=== PATIENT | female | born 1995 ===

== ENCOUNTER → 2019-06-05 23:40 | Observation (INO) ==
[2019-06-05 22:20] LABS: Amphetamine Screen,Urine Negative ng/mL (Cutoff=1000); Barbiturate Screen,Urine Negative ng/mL (Cutoff=200); Benzodiazepines Screen,Urine Negative ng/mL (Cutoff=200); Cannabinoid Screen,Urine Negative ng/mL (Cutoff = 50); Cocaine Screen,Urine Negative ng/mL (Cutoff= 300); Opiate Screen,Urine Negative ng/mL (Cutoff=300); Phencyclidine Screen,Urine Negative ng/mL (Cutoff=25)
[2019-06-05 22:34] LABS: Bilirubin,Urine Small (Negative); Blood,Urine Negative (Negative); Clarity,Urine Clear (Clear); Color,Urine Dark Yellow (Yellow); Glucose,Urine (UA) 250 mg/dL (Normal); Ketones,Urine Negative (Negative); Leukocyte Esterase,Urine Negative (Negative); Nitrite,Urine Negative (Negative); Protein,Urine Trace mg/dL (Neg-Trace); Specific Gravity,Urine > 1.030 (1.010-1.025); Urobilinogen,Urine Normal (Normal)
--- NOTE | 2019-06-05 23:12 | OB/GYN Progress Note ---
Date of Encounter: 06/05/19 Time of Encounter: 23:01 - Assessment and Plan (1) 33 weeks gestation of Current Visit: Yes Status: Acute Urine - dehydration; encouraged PO rehydration Suprapubic pressure - encouraged maternity support belt, massage, and urgent care physician assistant Discharge home with PTL precautions Follow up in office with routine care and PRN POC per consult with Dr Davison (2) Abdominal pain affecting Current Visit: Yes Status: Acute (3) NST (non-stress test) reactive Current Visit: Yes Status: Acute Subjective - Subjective Principal diagnosis: lower abdominal cramping Interval history: Ms Giordano is a 23 year old at 33 weeks and 1 day that presents to triage with c/o lower abdominal pain and pressure. This pain was so severe earlier today that she had to lay down in her car before she could drive. She also states she had an episode of difficulty breathing after the pain in her episode subsided. She states she has a history of anxiety with related chest pain, but has never been officially diagnosed with anxiety. She states positive movement. She denies headaches, vision changes, epigastric pain, leaking of fluid, and vaginal bleeding/discharge. She is seen by Dr Lara for her care. She has a medical history significant for Crohns for which she is no longer getting Remicade infusions and one previous LTCS for which she wishes to attempt a TOLAC. She is seen by Dr Lara for her care. Antepartum ROS: movement normal Objective - Vital Signs Vital Signs: Intake and Output 06/05/19 06/05/19 06/05/19 07:59 15:59 23:59 Other: Weight 69.49 kg Patient Weight 06/05/19 23:59 Weight 69.49 kg - Exam FHR: auscultation normal, category 1 FHR comments: Baseline 130 with moderate variability and 15 x 15 accels. No decels Contractions not present upon palpation, toco, or patient report. Auscultation: bilateral: normal Abdomen: Present: normal appearance, soft, gravid. Absent: rigidity, tenderness Uterus: Present: normal. Absent: firm, tenderness Cervical dilation: FT Cervix effacement: Thick station: -3/-4 - Labs Labs: Abnormal lab results Ur Specific [place] > 1.030 (1.010-1.025) H 06/05/19 22:05 Urine Glucose (UA) 250 mg/dL (Normal) H 06/05/19 22:05 Urine Bilirubin Small (Negative) H 06/05/19 22:05
== END | disposition home or self-care (01) ==
LOC: 1NENULAB
PROVIDERS: ADMIT Advanced Practice Midwife; ATTEND Advanced Practice Midwife

== ENCOUNTER 2019-07-22 10:00 | Inpatient (IN) ==
[2019-07-22] MEDS ORDERED: Metoclopramide 10 MG/2 ML VIAL IVP PRN ×2 (10:57→23:51)
[2019-07-22] MEDS ORDERED: *HR* Nalbuphine 10 MG/ML AMPUL IVP PRN (10:57)
[2019-07-22] MEDS ORDERED: Naloxone 0.4 MG/ML INJ IVP PRN (10:57)
[2019-07-22] MEDS ORDERED: Famotidine 20 MG/2 ML VIAL IVP PRN (10:57)
[2019-07-22] MEDS ORDERED: Ondansetron 4 MG/2 ML VIAL IVP PRN ×2 (10:57→23:51)
[2019-07-22] MEDS ORDERED: Ringers Solution, Lactated 1,000 ML IVC SCH ×2 (11:00→23:51)
[2019-07-22] MEDS ORDERED: Oxytocin 20 units/ LR 1000 mL 20 UNIT/1,000 ML BAG IVC SCH (12:15)
[2019-07-22 12:38] LABS: Amphetamine Screen,Urine Negative ng/mL (Cutoff=1000); Barbiturate Screen,Urine Negative ng/mL (Cutoff=200); Benzodiazepines Screen,Urine Negative ng/mL (Cutoff=200); Cannabinoid Screen,Urine Negative ng/mL (Cutoff = 50); Cocaine Screen,Urine Negative ng/mL (Cutoff= 300); Opiate Screen,Urine Negative ng/mL (Cutoff=300); Phencyclidine Screen,Urine Negative ng/mL (Cutoff=25)
[2019-07-22 13:05] LABS: Basophils % 0.3 %; Eosinophils # 0.2 K/mcL (0.0-0.6); Eosinophils % 1.1 %; Hematocrit 35.4 % (35.3-44.9); Hemoglobin 12.4 g/dL (11.5-15.4); Immature Granulocytes % 0.8 % (0-4); Lymphocytes # 1.9 K/mcL (0.6-4.6); Lymphocytes % 14.3 %; Mean Corpuscular Volume 82.7 fL (83.0-100.0); Mean Platelet Volume 10.2 fL (9.4-12.4); Monocytes % 7.3 %; Neutrophils # 10.1 K/mcL (1.6-8.9); Platelet Count 269 K/mcL (140-400); Red Blood Count 4.28 M/mcL (3.82-4.97); Red Cell Distribution Width 13.2 % (11.5-14.5); Segmented Neutrophils % 76.2 %; White Blood Count 13.2 K/mcL (4.3-11.1)
[2019-07-22] MEDS ORDERED: Epidural Premix (fent/bupiv) 110 ML EP ONE (16:46)
[2019-07-22] MEDS ORDERED: *HR* FentaNYL (PF) 100 MCG/2 ML VIAL ONE ×2 (16:47→20:06)
[2019-07-22] MEDS ORDERED: Bupivacaine-MPF 0.25% 10 ML VIAL ONE ×2 (16:48→17:24)
[2019-07-22] MEDS ORDERED: *HR* Morphine Sulfate/PF 10 MG/10 ML AMPUL ONE (20:06)
[2019-07-22] MEDS ORDERED: Bupivacaine/PF 0.75% in Dex 2 ML AMPUL INFILT ONE (20:06)
[2019-07-22] MEDS ORDERED: EPHEDrine 50 MG/ML VIAL ONE (20:13)
[2019-07-22] MEDS ORDERED: *HR* Oxytocin 10 UNIT/ML VIAL IM ONE (20:19)
[2019-07-22] MEDS ORDERED: Ondansetron 4 MG/2 ML VIAL ONE ×2 (20:19→20:45)
[2019-07-22] MEDS ORDERED: Morphine Sulfate 2 MG/ML SYRINGE IVP PRN (21:13)
[2019-07-22] MEDS ORDERED: Ibuprofen 400 MG TABLET PO PRN (21:13)
[2019-07-22] MEDS ORDERED: Acetaminophen IV 1,000 MG/100 ML INFUS..BTL IVPB ONE (21:14)
[2019-07-22] MEDS ORDERED: *HR* Promethazine 25 MG/ML VIAL IVP PRN (21:14)
[2019-07-22] MEDS ORDERED: Ondansetron 4 MG/2 ML VIAL IVP ONE (21:14)
[2019-07-22] MEDS ORDERED: Sennosides 8.6 MG TABLET PO PRN (23:51)
[2019-07-22] MEDS ORDERED: *HR* OxyCODONE/APAP 5/325 TABLET PO PRN (23:51)
[2019-07-23] MEDS: Oxytocin 20 units/ LR 1000 mL 20 UNIT/1,000 ML BAG IVC SCH ×2 (00:22→08:26)
[2019-07-23] MEDS: Ibuprofen 600 MG TABLET PO PRN ×4 (03:36→23:55)
[2019-07-23 06:04] LABS: Basophils % 0.2 %; Eosinophils % 0.2 %; Hematocrit 24.7 % (35.3-44.9); Immature Granulocytes % 0.5 % (0-4); Lymphocytes # 1.5 K/mcL (0.6-4.6); Lymphocytes % 7.9 %; Mean Corpuscular HGB Conc 34.4 g/dL (31.6-35.5); Mean Corpuscular Hemoglobin 28.7 pg (28.0-33.3); Mean Corpuscular Volume 83.4 fL (83.0-100.0); Mean Platelet Volume 9.7 fL (9.4-12.4); Monocytes # 1.5 K/mcL (0.0-1.3); Monocytes % 7.8 %; Neutrophils # 15.8 K/mcL (1.6-8.9); Platelet Count 211 K/mcL (140-400); Red Blood Count 2.96 M/mcL (3.82-4.97); Red Cell Distribution Width 13.2 % (11.5-14.5); Segmented Neutrophils % 83.4 %; White Blood Count 18.9 K/mcL (4.3-11.1)
[2019-07-23 06:11] LABS: Hemoglobin 8.5 g/dL (11.5-15.4)
[2019-07-23] MEDS: *HR* OxyCODONE/APAP 10/325 TABLET PO PRN ×2 (06:53→19:56)
[2019-07-23] MEDS: metroNIDAZOLE 500 MG TABLET PO SCH ×2 (08:25→19:56)
[2019-07-23] MEDS: cephALEXin 500 MG CAPSULE PO SCH ×2 (08:25→19:56)
[2019-07-23] MEDS: Prenatal Vit/FA 1 EACH TABLET PO SCH (08:25)
[2019-07-23] MEDS ORDERED: metroNIDAZOLE 500 MG TABLET PO SCH (09:00)
[2019-07-23] MEDS ORDERED: cephALEXin 500 MG CAPSULE PO SCH (09:00)
[2019-07-23] MEDS: Acetaminophen/Butalbital/CaffeineTABLET PO PRN ×3 (10:25→23:55)
[2019-07-23] MEDS: Simethicone 80 MG TAB.CHEW PO PRN (19:56)
[2019-07-24] MEDS: *HR* OxyCODONE/APAP 10/325 TABLET PO PRN ×3 (02:10→22:46)
[2019-07-24] MEDS: Simethicone 80 MG TAB.CHEW PO PRN ×2 (04:08→18:29)
[2019-07-24 06:44] LABS: Basophils % 0.2 %; Eosinophils # 0.2 K/mcL (0.0-0.6); Eosinophils % 1.1 %; Hematocrit 22.7 % (35.3-44.9); Hemoglobin 7.8 g/dL (11.5-15.4); Immature Granulocytes % 0.7 % (0-4); Lymphocytes % 13.6 %; Mean Corpuscular HGB Conc 34.4 g/dL (31.6-35.5); Mean Corpuscular Hemoglobin 29.1 pg (28.0-33.3); Mean Corpuscular Volume 84.7 fL (83.0-100.0); Mean Platelet Volume 9.6 fL (9.4-12.4); Monocytes # 1.4 K/mcL (0.0-1.3); Monocytes % 9.7 %; Platelet Count 235 K/mcL (140-400); Red Blood Count 2.68 M/mcL (3.82-4.97); Red Cell Distribution Width 13.7 % (11.5-14.5); Segmented Neutrophils % 74.7 %; White Blood Count 14.7 K/mcL (4.3-11.1)
[2019-07-24] MEDS: metroNIDAZOLE 500 MG TABLET PO SCH ×2 (08:39→20:36)
[2019-07-24] MEDS: Prenatal Vit/FA 1 EACH TABLET PO SCH (08:39)
[2019-07-24] MEDS: Ibuprofen 600 MG TABLET PO PRN ×3 (08:40→20:36)
[2019-07-24] MEDS: Acetaminophen/Butalbital/CaffeineTABLET PO PRN ×3 (08:40→20:36)
[2019-07-24] MEDS: cephALEXin 500 MG CAPSULE PO SCH ×2 (08:42→20:36)
[2019-07-24 20:11] VITALS: BP 126/78
[2019-07-25] MEDS: Simethicone 80 MG TAB.CHEW PO PRN ×3 (02:53→16:11)
[2019-07-25] MEDS: Acetaminophen/Butalbital/CaffeineTABLET PO PRN ×3 (02:53→16:06)
[2019-07-25] MEDS: Ibuprofen 600 MG TABLET PO PRN ×3 (02:53→16:07)
[2019-07-25] MEDS: *HR* OxyCODONE/APAP 10/325 TABLET PO PRN ×2 (06:52→13:00)
[2019-07-25] MEDS: Prenatal Vit/FA 1 EACH TABLET PO SCH (09:20)
[2019-07-25] MEDS: metroNIDAZOLE 500 MG TABLET PO SCH (09:21)
[2019-07-25] MEDS: cephALEXin 500 MG CAPSULE PO SCH (09:21)
== END 2019-07-25 19:50 | disposition home or self-care (01) | DRG 787 ==
LOC: 1NENULAB 10:05 → 1NENUOBS 23:50
PROVIDERS: ADMIT Obstetrics & Gynecology; ATTEND Obstetrics & Gynecology